=== PATIENT | male | born 1980 | race Caucasian/White ===

== ENCOUNTER 2018-11-16 14:20 | Outpatient (REF) | payer OTHER, SELFPAY ==
[2018-11-16 22:03] LABS: Abs Immature Grans 0.01 k/cumm (0.0-0.09); Absolute Basophil Count 0.02 k/cumm (0.0-0.2); Absolute Eosinophil Count 0.04 k/cumm (0.0-0.7); Absolute Lymphocyte Count 1.87 k/cumm (1.2-3.4); Absolute Monocyte Count 0.39 k/cumm (0.11-0.7); Absolute Neutrophil Count 4.84 k/cumm (1.2-6.7); Basophils % 0.3; Eosinophils % 0.6; HGB 14.8 g/dL (13.5-17.5); Immature Grans % 0.1; Lymphocytes % 26.1; Mean Corp. HGB Concentration 34.4 g/dL (32.0-36.0); Mean Corpuscular Volume 87.2 fL (80-95); Mean Platelet Volume 11.9 fL (8.0-11.0); Monocytes % 5.4; Neutrophils % 67.5; Platelet Count 215 x1000/uL (130-400); RBC 4.93 m/cumm (4.50-6.00); RBC Distribution Width 12.2 % (11.8-14.1); White Blood Cell Count 7.17 k/cumm (4.4-10.8)
[2018-11-16 22:18] LABS: Anion Gap 11.1 mmol/L (3-11); BUN 7 mg/dL (7-18); CO2 26.9 mmol/L (21.0-32.0); CREATININE 0.81 mg/dL (0.70-1.30); Calcium 9.2 mg/dL (8.5-10.1); Calculated LDL 120 mg/dL; Chloride 104 mmol/L (98-107); Cholesterol 193 mg/dL (50-200); Glucose 85 mg/dL (70-100); HDL Cholesterol 45 mg/dL (40-60); Potassium 3.8 mmol/L (3.5-5.1); Sodium 142 mmol/L (136-145); Triglyceride 143 mg/dL (30-150)
[2018-11-18 10:33] LABS: HIV-1/2 Ag & Ab Screen Negative (NEGAT); Hep A Total Ab w Rflx IgM Positive (NEGAT); Hepatitis C Ab w Rflx HCV PCR Negative (NEGAT)
[2018-11-18 11:00] LABS: HBs Antibody, Quant <3.1 mIU/mL; Hepatitis B Surface Ab Negative
[2018-11-18 11:11] LABS: Hepatitis B Surface Ag Negative (NEGAT)
[2018-11-18 11:18] LABS: Syphilis Serology (RPR) Negative (Negative)
[2018-11-24 13:20] LABS: Hep A Antibody IgM Negative (NEGAT)
== END 2018-11-16 14:40 ==
LOC: NCHCN 14:20
PROVIDERS: PCP Family Medicine; Visit Provider Family Medicine
DX: Z00.00 Encounter for general adult medical examination without abnormal findings (principal); L30.9 Dermatitis, unspecified; A63.0 Anogenital (venereal) warts; Z11.4 Encounter for screening for human immunodeficiency virus [HIV]; Z11.59 Encounter for screening for other viral diseases; Z01.84 Encounter for antibody response examination; Z82.49 Family history of ischemic heart disease and other diseases of the circulatory system
CPT/HCPCS: 80048; 80061; 83721; 86706; 86709; 86803; 87340; 87389; 87491; 87591; 84443; 85025; 86592

== ENCOUNTER 2018-11-17 12:52 | Outpatient (REF) | payer OTHER, SELFPAY ==
[2018-11-19 13:45] LABS: Chlamydia Result Negative; GC Result Negative; Specimen Description URINE
== END 2018-11-17 13:12 ==
LOC: NCHCN 12:52
PROVIDERS: PCP Family Medicine; Visit Provider Family Medicine
DX: Z00.00 Encounter for general adult medical examination without abnormal findings (principal); Z11.3 Encounter for screening for infections with a predominantly sexual mode of transmission; A63.0 Anogenital (venereal) warts
CPT/HCPCS: 87491; 87591

== ENCOUNTER 2019-04-05 11:43 | Emergency (ER) | payer OTHER, SELFPAY ==
[2019-04-05 11:46] VITALS: BP 124/74; PULSE 66; RESP 18; TEMP 36.8; O2SAT 98
--- NOTE | 2019-04-05 12:10 | W.ED.GENAD ---
Discharge Plan Disposition Patient Disposition: HOME Condition: Good Discharge Details Chief Complaint: Orthopedic Clinical Impression: Bursitis Primary Care Provider: None,None ED Provider: Karena Proctor Home Meds and New Rx's Prescriptions: No Action No Known Home Meds RF: 0 Discharge Instructions Instructions: Knee Bursitis (ED) Additional Instructions: Rest. Activities as tolerated. Elevate injury to prevent swelling. Avoid kneeling on affected knee. Ice to the area of discomfort for 15 min. 3-5 times daily. Motrin every 8 hours with food or Tylenol every 6 hours for soreness if needed over the counter for comfort. Bruce wrap for comfort. Do not need to sleep in bruce at night Followup with orthopedic doctor as discussed if not improving in one week. Return for any worsening or concerns sooner if needed. Referrals: Ortega Dobbins MD [ [facility] STAFF PHYSICIAN] - Discharge Data Discharge Date/Time-TO BE ENTERED AT DEPARTURE: 04/05/19 14:30 Medical Decision Making Is a 38-year-old gentleman who presents to the emergency room after injuring his bilateral knees when someone jumped on his back at his [employer]. Patient ultimately fell forward striking bilateral knees on cement wall climbing up hill. Patient presents with abrasions to bilateral knees. Patient has no complaints of right knee pain but is complaining of left knee pain. Patient reports left knee pain which she describes as a discomfort after sitting for any period of time when attempting to stand or get out of a car he notes increase in left knee pain. Patient appreciates a mild swelling of the left knee and mild warmth. Abrasions are present. Denies distal numbness, tingling or weakness. Patient does have extension which is intact however has some limitation to full flexion of the knee. Denies any locking, popping or giving out. Patient does report a history of knee injury as an adolescent with sports, no surgical history. Patient's x-ray reveals NDICATION: pain, injury fell on left knee. COMPARISON: No exams were available for comparison TECHNIQUE: 2D digital imaging was performed. FINDINGS: There is mild anterior soft tissue swelling. There is calcification at the medial femoral condyle which could represent a small exostosis versus calcification at the origin of the medial collateral ligament. The joint spaces are well maintained. There is no evidence of fracture or joint effusion. IMPRESSION: No acute abnormality. X-ray does not reveal an acute fracture. Discussed with patient the possibility of a ligamentous injury which is not identified on x-ray. Rice encouraged. Offered bracing versus Bruce wrap, preference is Bruce wrap. Patient does not feel crutches are necessary at this time. Orthopedic referral was provided for any persistence of pain lasting greater than 1 week. Patient reports his understanding with plan of care. HPI General Date/Time Provider Initiated Documentation: 04/05/19 11:52. HPI Narrative: Is a 38-year-old patient who presents for left knee complaints. 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 Patient reports abrasions to bilateral knees but specifically has complaints of left knee pain. Patient denies significant right knee pain. Patient reports stiffness in the knee as well as pain when initially ambulating. Patient does indicate an area on the left patella as maximum site of discomfort. Patient does have a history of previous knee injuries due to sports none requiring surgery. Patient is able to bear weight. Increased pain with deep knee bending, some limitation to flexion. Denies numbness, tingling or weakness. No other concerns or complaints at this time. Denies any other sites of pain or concerns. Tetanus is unknown, he will review his vaccination records. Related Data Home Medications Medication Instructions Recorded Confirmed Unknown [No Known Home Meds] 04/05/19 04/05/19 Allergies Allergy/AdvReac Type Severity Reaction Status Date / Time No Known Allergies Allergy Unverified 04/05/19 11:50 General Stated Complaint: Orthopedic BRET: 4 Review of Systems All systems reviewed & are unremarkable except as noted in HPI and below Constitutional Constitutional: Denies headache(s) ENT Ears, Nose, Mouth, and Throat: Denies headache(s) and Denies neck pain Musculoskeletal Musculoskeletal: Denies back pain, Reports joint swelling, Reports limited range of motion, Denies neck pain, Denies numbness and Denies tingling Neurologic Neurologic: Denies headache(s), Denies numbness and Denies tingling [facility] Social History Smoking/Tobacco Use Status: Never Alcohol Intake: current Alcohol Intake frequency: 0-2 drinks per day Drug use: Never Substance use type: does not use Do you feel safe at home: Yes Do you feel safe in your relationship?: Yes Exam Narrative Exam Narrative: CONST: Healthy appearing patient, in no acute distress. Well hydrated. Alert and alert. MUSCULOSKELETAL: Normal Gait. Left knee; mild knee effusion present. Left anterior knee bursa swelling, minimal discomfort. Patella tenderness. Patella tracking in the midline no pain with shifting of the patella. Straight leg raise intact. Mild limitation to knee flexion. No significant joint line tenderness with palpation. No obvious pain with valgus or varus stress of the meniscus. No obvious laxity compared to contralateral knee. Distal neurovascularly intact SKIN: Normal. Dry. No rashes. Neuro: Speech clear. Course Vital Signs Vital signs: Vital Signs Temperature 36.8 C 04/05/19 11:46 Pulse 66 04/05/19 11:46 Respiratory Rate 18 04/05/19 11:46 Blood Pressure 124/74 04/05/19 11:46 Pulse Oximetry 98 04/05/19 11:46 Temperature 36.8 C 04/05/19 11:46 Temperature Source Skin 04/05/19 11:46 Pulse 66 04/05/19 11:46 Respiratory Rate 18 04/05/19 11:46 Respiratory Effort Non-Labored 04/05/19 11:51 Blood Pressure 124/74 04/05/19 11:46 Blood Pressure Position Sitting 04/05/19 11:46 Pulse Oximetry 98 04/05/19 11:46 Oxygen Delivery Method Room Air 04/05/19 11:46 Oxygen Flow Rate 0 04/05/19 11:46 Pain Level 8 04/05/19 11:46
--- NOTE | 2019-04-05 12:25 | DI.RAD_ITS ---
EXAM: XR KNEE LT 4V AP,LAT,LEYDI,PAT INDICATION: pain, injury fell on left knee. COMPARISON: No exams were available for comparison TECHNIQUE: 2D digital imaging was performed. FINDINGS: There is mild anterior soft tissue swelling. There is calcification at the medial femoral condyle wh ich could represent a small exostosis versus calcification at the origin of the medial collateral lig ament. The joint spaces are well maintained. There is no evidence of fracture or joint effusion. IMPRESSION: No acute abnormality.
== END 2019-04-05 14:30 | disposition home or self-care (01) ==
PROVIDERS: Emergency Provider Physician Assistant
DX: M71.562 Other bursitis, not elsewhere classified, left knee (principal); W01.198A Fall on same level from slipping, tripping and stumbling with subsequent striking against other object, initial encounter
CPT/HCPCS: 99283; 73564

== ENCOUNTER 2021-01-29 09:47 | Outpatient (REF) | payer OTHER, SELFPAY ==
[2021-01-30 10:17] LABS: Syphilis Serology (RPR) Negative (Negative)
[2021-01-30 11:17] LABS: HIV-1/2 Ag & Ab Screen Negative (Negative)
[2021-01-30 13:47] LABS: Chlamydia Result Negative (Negative); GC Result Negative (Negative)
== END 2021-01-29 09:48 | disposition home or self-care (01) ==
LOC: NCHCN 09:47
PROVIDERS: Visit Provider Internal Medicine
DX: Z11.3 Encounter for screening for infections with a predominantly sexual mode of transmission (principal); Z11.4 Encounter for screening for human immunodeficiency virus [HIV]
CPT/HCPCS: 87389; 87491; 87591; 86592

== ENCOUNTER 2021-05-13 12:22 | Emergency (ER) | payer OTHER, SELFPAY ==
[2021-05-13 12:27] VITALS: BP 120/64; PULSE 62; RESP 16; TEMP 37.1; O2SAT 99
--- NOTE | 2021-05-13 12:30 | DI.RAD_ITS ---
Exam(s) XR THUMB LT EXAM: XR THUMB LT EXAM DATE/TIME: CLINICAL HISTORY: pain after fall skiing. TECHNIQUE: 2D digital imaging was performed of the left finger. Three views were obtained. PA/AP, oblique, and lateral views were obtained. COMPARISON: None. FINDINGS: BONES: No acute fracture is present. No bony destructive lesion is seen. JOINTS: No dislocation is present. SOFT TISSUE: Normal. IMPRESSION: No evidence of acute fracture or dislocation. DATA REPOSITORY: RADIATION DOSE DELIVERED:
--- NOTE | 2021-05-13 12:41 | ED.GENADUL_ITS ---
Discharge Plan Disposition Patient Disposition: HOME Condition: Improving Discharge Details Clinical Impression: Left thumb sprain Primary Care Provider: None,None ED Provider: Ortega Mercedes Home Meds and New Rx's Prescriptions: No Action No Known Home Meds RF: 0 Discharge Instructions Additional Instructions: We have referred you to orthopedics for follow-up and repeat examination. The office number is [phone], but you should receive a call regarding an appointment time. Wear splint until seen in orthopedics for follow-up. You may remove for bathing. Tylenol and/or ibuprofen for pain. Apply ice to area to reduce. Return to the emergency department for any acute concerns. Medical Decision Making 40-year-old male states he was cross-country skiing yesterday with his hands strapped into poles, with distended a slope and then fell backwards after hitting soft snow. He injured his left thumb which is developed bruising and swelling overnight. He denies other injury. Patient has fusiform tenderness and swelling at the base and proximal phalanx of the left thumb. Laxity is not appreciated on the exam at the bedside. He is referred for x-ray which does not reveal underlying fracture or dislocation. He may have partial ulnar collateral ligament tear and I will place him in thumb spica splint with follow-up in orthopedics. Patient stable and appropriate for outpatient. HPI General Mode of arrival: ambulatory . Date/Time Provider Initiated Documentation: 05/13/21 12:23 . Limitations to Documentation: no limitations . Information obtained by: patient . History of Present Illness 40 year old M presents to the emergency department with the chief complaint of Left thumb inju ry yesterday, described as moderate, Quality is described as dull, and is localized to the left and upper extremity. Patient reports no radiation. Patient started experiencing this hour(s) and it has been constant. Rest improves symptom(s), Movement worsens symptoms . Patient notes denies denies other symptoms. Patient did receive the following treatments prior to arrival, none Related Data Home Medications Medication Instructions Recorded Confirmed Unknown [No Known Home Meds] 04/05/19 05/13/21 Allergies Allergy/AdvReac Type Severity Reaction Status Date / Time No Known Allergies Allergy Unverified 05/13/21 12:31 General Stated Complaint: Orthopedic BRET: 4 Review of Systems Narrative: Denies other injury. No numbness or tingling. 6 systems were reviewed and otherwise negative PFS All Active Problems (Updated 05/13/21 @ 13:01 by Ortega Mercedes MD) Left thumb sprain (Acute) Social History Smoking/Tobacco Use Status: Never Smoking risk assessment performed?: Yes Alcohol Intake: current Alcohol Intake frequency: 0-2 drinks per day Drug use: Never Substance use type: does not use Do you feel safe at home: Yes Do you feel safe in your relationship?: Yes Exam Narrative Exam Narrative: GEN: awake, alert, oriented 3. Pleasant, well groomed, interactive. HEAD: Normocephalic, atraumatic NECK: Full ROM CHEST/RESP: No respiratory distress EXT: Full ROM, the left thumb is tender at the base and through the proximal phalanx. No laxity is appreciated. Sensation intact throughout. Neuro: Grossly normal neurologic exam, conversant, interactive. Psych: Speech fluent, thoughts congruent, affect normal Course Vital Signs Vital signs: Vital Signs Temperature 37.1 C 05/13/21 12:27 Pulse 62 05/13/21 12:27 Respiratory Rate 16 05/13/21 12:27 Blood Pressure 120/64 05/13/21 12:27 Pulse Oximetry 99 05/13/21 12:27 Temperature 37.1 C 05/13/21 12:27 Temperature Source Skin 05/13/21 12:27 Pulse 62 05/13/21 12:27 Respiratory Rate 16 05/13/21 12:27 Respiratory Effort 05/13/21 12:27 Blood Pressure 120/64 05/13/21 12:27 Blood Pressure Position Sitting 05/13/21 12:27 Pulse Oximetry 99 05/13/21 12:27 Oxygen Delivery Method Room Air 05/13/21 12:27 Oxygen Flow Rate 0 05/13/21 12:27 Pain Level 3 05/13/21 12:32 PAWSS Have you Been Recently Intoxicated or Drunk Within the Last 30 days?: Yes Have you Ever Experienced Previous Episodes of Alcohol Withdrawal?: No Have you ever Experienced Withdrawal Seizures?: No Have you ever Experienced Delirium Tremens(DT)s?: No Have you ever undergone Alcohol Rehabilitation Treatment (i.e, inpt ot outpatient treatment programs)?: No Have you ever Experienced Blackouts?: No Have you ever Combined Alcohol with other Downers within the last 90 days?: No Have you ever Combined Alcohol with any other Substance of Abuse during the last 90 days?: No Result: 1
--- NOTE | 2021-05-13 13:08 | DI.VRAD_ITS ---
PROCEDURE INFORMATION: Exam: XR Left Finger(s) Exam date and time: 05/13/2021 12:42 PM Age: 40 years old Clinical indication: Injury or trauma; Other: Pain after fall skiing; Sprain or strain; Finger; Left; Thumb TECHNIQUE: Imaging protocol: XR Left fingers. Views: Minimum 2 views. COMPARISON: No relevant images were readily available for comparison purposes. FINDINGS: Bones/joints: No acute fracture or dislocation. Soft tissues: Unremarkable. IMPRESSION: No acute fracture or dislocation. Dictated and Authenticated by: Maximiliano Nagy MD. Ordering:JIHAN Vivas MD
== END 2021-05-13 13:31 | disposition home or self-care (01) ==
PROVIDERS: Emergency Provider Emergency Medicine
DX: S63.682A Other sprain of left thumb, initial encounter (principal); V00.321A Fall from snow-skis, initial encounter
CPT/HCPCS: 29125; 99283; 73140

== ENCOUNTER 2022-01-14 20:32 | Outpatient (REF) | payer OTHER, SELFPAY ==
[2022-01-14 21:40] LABS: ALT 29 U/L (16-63); AST 14 U/L (15-37); Alkaline Phosphatase 72 U/L (46-116); Anion Gap 7.2 mmol/L (3-11); BUN 14 mg/dL (7-18); Bilirubin, Total 0.3 mg/dL (0.2-1.0); CO2 28.8 mmol/L (21.0-32.0); CREATININE 0.9 mg/dL (0.70-1.30); Calcium 9.2 mg/dL (8.5-10.1); Calculated LDL 128 mg/dL (<100); Chloride 104 mmol/L (98-107); Cholesterol 221 mg/dL (<200); Estimated GFR 108.68 (mL/min/1.73m2); Glucose 83 mg/dL (74-106); HDL Cholesterol 46 mg/dL (40-60); Potassium 3.9 mmol/L (3.5-5.1); Sodium 140 mmol/L (136-145); Total Protein 7.4 g/dL (6.4-8.2); Triglyceride 238 mg/dL (<150)
== END 2022-01-14 20:33 | disposition home or self-care (01) ==
LOC: NCHCN 20:32
PROVIDERS: PCP Internal Medicine; Visit Provider Internal Medicine
DX: E78.5 Hyperlipidemia, unspecified (principal); Z00.00 Encounter for general adult medical examination without abnormal findings
CPT/HCPCS: 80053; 80061

== ENCOUNTER 2023-01-22 22:15 | Outpatient (REF) | payer OTHER, SELFPAY ==
[2023-01-22 23:04] LABS: ALT 45 U/L (16-63); AST 20 U/L (15-37); Albumin 4.1 g/dL (3.4-5.0); Alkaline Phosphatase 66 U/L (46-116); Anion Gap 8.3 mmol/L (3-11); BUN 13 mg/dL (7-18); Bilirubin, Total 0.4 mg/dL (0.2-1.0); CO2 26.7 mmol/L (21.0-32.0); Calcium 9.6 mg/dL (8.5-10.1); Calculated LDL 133 mg/dL (<100); Chloride 103 mmol/L (98-107); Cholesterol 209 mg/dL (<200); Estimated GFR 95.18 (mL/min/1.73m2); Glucose 92 mg/dL (74-106); HDL Cholesterol 48 mg/dL (40-60); Sodium 138 mmol/L (136-145); Total Protein 7.7 g/dL (6.4-8.2); Triglyceride 142 mg/dL (<150)
== END 2023-01-22 22:16 | disposition home or self-care (01) ==
LOC: NCHCN 22:15
PROVIDERS: PCP Internal Medicine; Visit Provider Internal Medicine
DX: Z00.00 Encounter for general adult medical examination without abnormal findings (principal); E78.5 Hyperlipidemia, unspecified; Z51.81 Encounter for therapeutic drug level monitoring; Z82.49 Family history of ischemic heart disease and other diseases of the circulatory system
CPT/HCPCS: 80053; 80061

== ENCOUNTER 2024-04-05 09:19 | Outpatient (REF) | payer OTHER, SELFPAY ==
--- OUTSIDE RECORDS SUMMARY | 2024-04-05 09:35 | XMS_ITS | Referral Summary ---
Author Organization [facility] Address [address] [place] [address] Care Team Providers Care Mounted Police Officer Name Role Phone Unknown, Provider MD Primary Care Provider Unava ilable Allergies No known active allergies Medications No known medications Active Problems No known active problems Social History Tobacco Use Types Packs/Day Years Used Date Smoking Tobacco: Never Assessed Interpersonal Safety Answer Date Record ed Physically Hurt Never 03/21/2020 Verbally Threaten Not on file 03/21/2020 Sex and Gender Information Value Date Recorded Sex Assigned at Not on file Legal Sex Male 18:07 EST Gender Identity Not on file Sexual Orientation Not on file Last Filed Vital Signs Vital Sign Reading Time Taken Comments Blood Pressure 108/74 10/29/2021 1118 EDT Pulse 58 10/29/2021 1118 EDT Temperature 37.1 ??C (98.7 ??F) 10/29/2021 1118 EDT Respiratory Rate 16 10/29/2021 1118 EDT Oxygen Saturation 100% 10/29/2021 1118 EDT Inhaled Oxygen Concentration - - Weight - - Height - - Body Mass Index - - Plan of Treatment Not on file Insurance [facility] Care Teams Mounted Police Officer Relationship Specialty Start Date End Date Unknown, Provider, PCP - General 11/01/14
--- OUTSIDE RECORDS SUMMARY | 2024-04-05 09:35 | XMS_ITS | Encounter Summary ---
Author Organization [facility] Address [address] [place] [address] Care Team Providers Care Distribution Operations Manager Name Role Phone Unknown, Provider Primary Care Provider Unava ilable Reason for Visit * Reason Onset Date Comments Other 03/21/2020 Encounter Details Date Type Department Care Team (Late st Contact Info) Description 03/21/2020 Telephone [facility] - [facility] Orthopedics & Sport Medicine [address], [address] [place], [place] [id number] Madeline Shepherd, RN [address] [facility] [address] [place], [place] [address] Other Social History Tobacco Use Types Packs/Day Years Used Date Smoking Tobacco: Never Assessed Interpersonal Safety Answer Date Record ed Physically Hurt Never 03/21/2020 Verbally Threaten Not on file 03/21/2020 Sex and Gender Information Value Date Recorded Sex Assigned at Not on file Legal Sex Male 18:07 EST Gender Identity Not on file Sexual Orientation Not on file documented as of this encounter Miscellaneous Notes * Telephone Encounter - Madeline Shepherd RN - 03/21/2020 1522 EST Braulio called back. His concern was that he was not seeing a physician and his encounter with a PA at [facility] was not as successful as he would have liked. Reassured him that was very knowledgeable in upper extremity orthopedics. He will have the MRI sent to us for the appt. * Telephone Encounter - Madeline Shepherd RN - 03/21/2020 1323 EST Mr. Johnson called and left a message requesting a call back as he has specific questions regarding his appt on Friday (new patient appt 03/27/2020). Attempted to call the patient back. No answer and voice mail message left. documented in this encounter Plan of Treatment Not on file documented as of this encounter Visit Diagnoses Not on filedocumented in this encounter Care Teams Distribution Operations Manager Relationship Specialty Start Date End Date Unknown, Provider, PCP - General 11/01/14 documented as of this encounter
--- OUTSIDE RECORDS SUMMARY | 2024-04-05 09:35 | XMS_ITS | Encounter Summary ---
Author Organization Health system Address [address] [place] [address] Care Team Providers Care Diesel Fitter Mechanic Name Role Phone Unknown, Provider Primary Care Provider Unava ilable Reason for Visit * Reason Comments Cough Encounter Details Date Type Department Care Team (Late st Contact Info) Description 10/29/2021 11:00 EDT Office Visit [facility] [address], [place] [id number] Brenda Hinkle PA-C [address] [facility] [address] [place], [place] [id number] Cough (Primary Dx) Social History Tobacco Use Types Packs/Day Years Used Date Smoking Tobacco: Never Assessed Interpersonal Safety Answer Date Record ed Physically Hurt Never 03/21/2020 Verbally Threaten Not on file 03/21/2020 Sex and Gender Information Value Date Recorded Sex Assigned at Not on file Legal Sex Male 18:07 EST Gender Identity Not on file Sexual Orientation Not on file documented as of this encounter Last Filed Vital Signs Vital Sign Reading Time Taken Comments Blood Pressure 108/74 10/29/2021 1118 EDT Pulse 58 10/29/2021 1118 EDT Temperature 37.1 ??C (98.7 ??F) 10/29/2021 1118 EDT Respiratory Rate 16 10/29/2021 1118 EDT Oxygen Saturation 100% 10/29/2021 1118 EDT Inhaled Oxygen Concentration - - Weight - - Height - - Body Mass Index - - documented in this encounter Patient Instructions * Patient Instructions* Brenda Hinkle PA-C - 10/29/2021 11:00 EDT Images from the original note were not included. [facility] Patient Instructions Upper Respiratory Infection (Cold): Care Instructions Your Care Instructions An upper respiratory infection, or URI, is an infection of the nose, sinuses, or throat. URIs are spread by coughs, sneezes, and direct contact. The common cold is the most frequent kind of URI. The flu and sinus infections are other kinds of URIs. Almost all URIs are caused by viruses. Antibiotics won't cure them. But you can treat most infections with home care. This may include drinking lots of fluids and taking kjmk-rof-xazdqfn pain medicine. You will probably feel better in 4 to 10 days. The doctor has checked you carefully, but problems can develop later. If you notice any problems ornew symptoms, get medical treatment right away. Follow-up care is a bains part of your treatment and safety. Be sure to make and go to all appointments, and call your doctor if you are having problems. It's also a good idea to know your test resultsand keep a list of the medicines you take. How can you care for yourself at home? ?? To prevent dehydration, drink plenty of fluids. Choose water and other clear liquids until you feel better. If you have kidney, heart, or liver disease and have to limit fluids, talk with your doctor before you increase the amount of fluids you drink. ?? Take an piwl-pfu-alycufr pain medicine, such as acetaminophen (Tylenol), ibuprofen (Advil, Motrin), or naproxen (Aleve). Read and follow all instructions on the label. ?? Before you use cough and cold medicines, check the label. These medicines may not be safe for young children or for people with certain health problems. ?? Be careful when taking hnam-lvi-jqtabgr cold or flu medicines and Tylenol at the same time. Manyof these medicines have acetaminophen, which is Tylenol. Read the labels to make sure that you are not taking more than the recommended dose. Too much acetaminophen (Tylenol) can be harmful. ?? Get plenty of rest. ?? Do not smoke or allow others to smoke around you. If you need help quitting, talk to your doctorabout stop-smoking programs and medicines. These can increase your chances of quitting for good. When should you call for help? Call 911 anytime you think you may need emergency care. For example, call if: ? You have severe trouble breathing. Call your doctor now or seek immediate medical care if: ? You seem to be getting much sicker. ? You have new or worse trouble breathing. ? You have a new or higher fever. ? You have a new rash. Watch closely for changes in your health, and be sure to contact your doctor if: ? You have a new symptom, such as a sore throat, an earache, or sinus pain. ? You cough more deeply or more often, especially if you notice more mucus or a change in the color of your mucus. ? You do not get better as expected. Where can you learn more? Go to https://[email or web address].Vontoo.[facility]/Vivaty or log into your Magin account at https://PriceTag.[employer]org Enter K520 in the search box to learn more about Upper Respiratory Infection (Cold): Care Instructions. Current as of: October 24, 2020?Content Version: 13.2 ?? [employer]. Care instructions adapted under license by [facility]. If you have questions about a medical condition or this instruction, always ask your healthcare professional. [employer] disclaims any warranty or liability for your use of this information. documented in this encounter Progress Notes * Doris Shannon MA - 10/29/2021 1100 EDT CC/HPI: Patient reports a hoarse voice started 1 week ago. Patient developed a productive cough that is much worse at night when laying down at night and upon first waking up in the morning started about 3 days ago. Patient has taken 4 rapid COVID test which have all been negative. No fever or shortness of breath. Recent exposure to Pneumonia. Covid Screening: In the last 72 hours, has the patient had: New or unusual cough, shortness of breath, new nasal congestion, sore throat, fever, chills, body aches, or new loss of taste or smell without a reasonable alternative diagnosis*? (If yes, assign to ARC)- See above In the past 10 days, has the patient had a positive Covid test OR a confirmed close Covid exposure (<6ft for > 15mins in 24hr period)? (if yes, assign to ARC, regardless of vaccination status)-No *may be determined by RN or in discussion with available provider (BRAIDING OPERATOR's and CCA's can defer to Charge Nurse to complete triage when appropriate) PCP: UNKNOWN,PROVIDER * Brenda Hinkle PA-C - 10/29/2021 1100 EDT [facility] Express Care Chief Complaint(s): Chief Complaint Patient presents with ??? Cough Assessment & Plan: 1. Cough New Prescriptions No medications on file This patient presents with concern for upper respiratory infection type symptoms. The patient has areassuring physical exam without a focal point of infection. Vital signs stable and the patient appears well. The patient has symptoms consistent with viral illness vs allergies. Antibiotics not indicated at this time. Advised rest, hydration, and time. Use nasal saline, humidifier in bedroom, hot steam baths, and OTC medications as discussed. Symptoms will last 7-10 days andmay have lingering cough/nasal congestion for 1-2 weeks. F.u with any concern for worsening symptoms, fevers, SOB. HPI: The history is provided by the patient. Cough This is a new problem. Episode onset: in the past 5-7 days. The problem has been waxing and waning.The problem occurs every few minutes. Cough characteristics: productive of yellow sputum only in the morning. Associated symptoms include nasal congestion and a sore throat (loss of voice although this is improving). Pertinent negatives include no fever, shortness of breath or wheezing. The symptoms are aggravated by lying down. There is no history of asthma or pneumonia. No smoking history. Notes coworker has asthma and similar symptoms. The coworker is being treated with doxycycline, pt thinks for pneumonia, so pt is worried about pneumonia exposure ROS: Review of Systems Constitutional: Negative for fever. HENT: Positive for sore throat (loss of voice although this is improving). Respiratory: Positive for cough. Negative for shortness of breath and wheezing. Objective: Vitals and nursing notes reviewed Examination: BP 108/74 (BP Cuff Location: Left arm, BP Patient Position: Sitting, BP Cuff Sizes: Adult, long) Pulse 58 Temp 37.1 ??C (98.7 ??F) (Oral) Resp 16 SpO2 100% Physical Exam Constitutional: Appearance: He is well-developed. HENT: Right Ear: Tympanic membrane normal. Left Ear: Tympanic membrane normal. Mouth/Throat: Pharynx: No oropharyngeal exudate or posterior oropharyngeal erythema. Eyes: Conjunctiva/sclera: Conjunctivae normal. Cardiovascular: Rate and Rhythm: Normal rate and regular rhythm. Pulmonary: Effort: Pulmonary effort is normal. Breath sounds: No wheezing, rhonchi or rales. Musculoskeletal: Cervical back: Normal range of motion. No tenderness. Lymphadenopathy: Cervical: No cervical adenopathy. Skin: General: Skin is warm and dry. Neurological: Mental Status: He is alert. Gait: Gait normal. This note may be in part documented using voice dictation software. Please forgive any errors or omissions that may result from use of dictation. documented in this encounter Plan of Treatment Not on file documented as of this encounter Visit Diagnoses Diagnosis Cough- Primary documented in this encounter Care Teams Diesel Fitter Mechanic Relationship Specialty Start Date End Date Unknown, Provider, PCP - General 11/01/14 documented as of this encounter
--- OUTSIDE RECORDS SUMMARY | 2024-04-05 09:35 | XMS_ITS | Encounter Summary ---
Author Organization [facility] Address [address] [place] [address] Care Team Providers Care Portable Track Crew Chief Name Role Phone Unknown, Provider Primary Care Provider Unava ilable Reason for Visit * Reason Comments Pain Encounter Details Date Type Department Care Team (Late st Contact Info) Description 03/27/2020 11:00 EST Office Visit [facility] Orthopedics & Sport Medicine [address] [place], [place] [phone] Linda Chung PA-C [address] [facility] [address] [place] [id number] Adhesive capsulitis of left shoulder (Primary Dx) Social History Tobacco Use Types Packs/Day Years Used Date Smoking Tobacco: Never Assessed Interpersonal Safety Answer Date Record ed Physically Hurt Never 03/21/2020 Verbally Threaten Not on file 03/21/2020 Sex and Gender Information Value Date Recorded Sex Assigned at Not on file Legal Sex Male 18:07 EST Gender Identity Not on file Sexual Orientation Not on file COVID-19 Exposure Response Date Recorded In the last month, have you been in contact with someone who was confirmed or suspected to have Coronavirus / COVID-19? No / Unsure 03/27/2020 11:06 EST documented as of this encounter Last Filed Vital Signs Vital Sign Reading Time Taken Comments Blood Pressure - - Pulse - - Temperature 36.8 ??C (98.3 ??F) 03/27/2020 1111 EST Respiratory Rate - - Oxygen Saturation - - Inhaled Oxygen Concentration - - Weight - - Height - - Body Mass Index - - documented in this encounter Progress Notes * Linda Chung PA-C - 03/27/2020 1100 EST Patient presents today for evaluation of his left shoulder. He states that he feels this has been ongoing for 1 year since his [employer] libertarian last year. 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 He has had some PT but then was out of the country [place] a while. He has pain that is sharp and radiates up the entire arm. CHIEF COMPLAINT: SUBJECTIVE: Braulio Johnson is a 39 y.o. right hand dominant male who presents today for evaluation of his left shoulder. He is here for a second opinion. He fell directly onto the left shoulder, at a [employer] libertarian last year. Initially, did not have a significant amount of pain, but then developed some soreness in the shoulder, slowly the soreness increased, and the range of motion decreased. He initially did some physical therapy early on, but then traveled to [facility] for a few months, came back in June and PT was shut down due to the Covid restrictions. He then restarted PT recently. Saw [facility] in November, radiographs taken at that time. He then proceeded with an MRI in January.He saw Dr. Plummer, at [facility]. Right now he states that he has pain whenever he moves the shoulder, has difficulty with rotation, and significant stiffness lifting overhead. 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 He has not tried any oral medications, does do CBD capsule as well as melatonin to sleep at night as he has considerable pain atnight. Denies paresthesias, denies prior shoulder injuries, denies neck pain. A 10-point review of systems has been reviewed from the new patient intake sheet and all are negative except noted in HPI. He is a non-smoker. The past medical, family and social history have been reviewed in the patient chart. I spent time preparing advance of the visit today, which included obtaining and reviewing prior history and notes from the primary care provider and/or referring providers, as well as reviewing any relevant prior imaging and tests, which I also independently interpreted. History reviewed. No pertinent past medical history. Social History Tobacco Use ??? Smoking status: Not on file Substance Use Topics ??? Alcohol use: Not on file History reviewed. No pertinent surgical history. No Known Allergies No current outpatient medications on file prior to visit. No current facility-administered medications on file prior to visit. OBJECTIVE: Temp 36.8 ??C (98.3 ??F) On physical exam, the patient is found to be a pleasant and cooperative male who appears to be alert and oriented x 3. He is well-developed, well-nourished and in no significant distress. Breathing is unlabored. Skin is warm, pink and dry to inspection and palpation. Neurovascularly intact with good capillary refill. Sensation to light touch in the distribution of median, radial and ulnar nerves is normal bilaterally. Upon inspection, there are no obvious areas of swelling, ecchymosis, joint deformity or atrophy. Range of motion of the shoulder is significantly limited today on the left. He essentially has 0 degrees of external rotation at the side, abduction actively 100 degrees, forward flexion 120 degrees. Internal rotation to the back pocket only. Significant pain testing range of motion. Passive range of motion unfortunately is not greater than active. He does have full strength ofthe rotator cuff today, significant pain testing the supraspinatus and subscapularis. Full strengthbiceps, triceps, deltoids without significant pain. Cervical motion is full. Prior radiographs and MRI independently reviewed. The MRI does reveal no significant rotator cuff tear with some tendinopathy/inflammation in the supraspinatus and infraspinatus. There is mild bursitis. There does appear to be possibly some thickening of the anterior glenohumeral joint capsule. ASSESSMENT: Frozen shoulder PLAN: After reviewing the prior separately obtained patient history, imaging and tests, and performing my examination and evaluation, I counseled educate the patient today about adhesive capsulitis. Discussed this at length with the patient as well as treatment options, including doing nothing as it is self- limiting, continue PT, oral anti-inflammatories and medications, as well as glenohumeral injection, and his surgical option. At this time would would not recommend a surgical option, but would recommend a glenohumeral injection. He agreed with this plan. Follow-up in 3 months for repeat evaluation. He states that he may be traveling to [facility] if he can, but he will follow-up with me via telephone if needed in interim. All questions were answered and he is pleased with the plan. Glenohumeral injection given today by Dr. Carvajal. Dr. Carvajal was the attending physician available in the clinic today if needed. A consultation was required. This note was prepared using voice recognition software and the EMR. There may be inadvertent errors and omissions. LYNNETTE Cardenas 03/27/2020 * Linda Chung PA-C - 03/27/2020 1100 ESTAssociated Order(s): Large Joint Injection/Arthrocentesis: L glenohumeral Post-Procedure Diagnose(s): Adhesive capsulitis of left shoulder Procedure: Large Joint Injection/Arthrocentesis: L glenohumeral on 03/27/2020 13:01 Indications: pain Details: 22 G needle Medications: 80 mg methylPREDNISolone ACETATE 80 mg/mL; 4 mL lidocaine (PF) 10 mg/mL (1 %) Outcome: tolerated well, no immediate complications Procedure, treatment alternatives, risks and benefits explained, specific risks discussed. Consent was given by the patient. Immediately prior to procedure a time out was called to verify the correctpatient, procedure, equipment, human resources support specialist and site/side marked as required. Patient was prepped and draped in the usual sterile fashion. documented in this encounter Plan of Treatment Not on file documented as of this encounter Procedures Procedure Name Priority Date/Time Associated Diagnosis Comments LARGE JOINT INJECTION/ARTHROCEN TESIS Routine 03/27/2020 11:00 EST Adhesive capsulitis of left shoulder documented in this encounter Results * RI ARTHROCENTESIS ASPIR&/INJ MAJOR JT/BURSA W/O US (03/27/2020 11:00 EST) Narrative [facility] - 03/27/2020 11:00 EST Linda Chung PA-C ? 03/27/2020 13:03 Large Joint Injection/Arthrocentesis: L glenohumeral on 03/27/2020 13:01 Indications: pain Details: 22 G needle Medications: 80 mg methylPREDNISolone ACETATE 80 mg/mL; 4 mL lidocaine (PF) 10 mg/mL (1 %) Outcome: tolerated well, no immediate complications Procedure, treatment alternatives, risks and benefits explained, specific risks discussed. Consent was given by the patient. Immediately prior to procedure a time out was called to verify the correct patient, procedure, equipment, human resources support specialist and site/side marked as required. Patient was prepped and draped in the usual sterile fashion. Shon Carvajal MD PROCEDURE/MINOR SURGICAL ORDERAB LES Final Result [facility] documented in this encounter Visit Diagnoses Diagnosis Adhesive capsulitis of left shoulder- Primary Adhesive capsulitis of shoulder documented in this encounter Administered Medications Inactive Administered Medications - up to 3 most recent administrations Medication Order MAR Action Action Date Dose Rate Site lidocaine (PF) 10 mg/mL (1 %) injection 4 mL 4 mL, other, Once PRN Procedure, 1 dose, Starting on Fri03/27/20 at 1301, Until Fri03/27/20 at 1301, RoutineIndications:Adhesive capsulitis of left shoulder Given 03/27/2020 13:01 EST 4 mL methylPREDNISolone ACETATE (DEPO-MEDROL) injection 80 mg 80 mg, intra-articular, Once PRN Procedure, 1 dose, Starting on Fri03/27/20 at 1301, Until Fri03/27/20 at 1301, RoutineIndications:Adhesive capsulitis of left shoulder Given 03/27/2020 13:01 EST 80 mg documented in this encounter Care Teams Portable Track Crew Chief Relationship Specialty Start Date End Date Unknown, Provider, PCP - General 11/01/14 documented as of this encounter
--- OUTSIDE RECORDS SUMMARY | 2024-04-05 09:35 | XMS_ITS | Encounter Summary ---
Author Organization [facility] Address [address] [place] [address] Care Team Providers Care Local Delivery Driver Name Role Phone Unknown, Provider Primary Care Provider Jevon chris Encounter Details Date Type Department Care Team (Late st Contact Info) Description 01/29/2021 Lab Requisition [facility] Pathology & Laboratory Medicine - [facility] [address] [place], [place] [address] Outr Resulting Lab, Provider Social History Tobacco Use Types Packs/Day Years Used Date Smoking Tobacco: Never Assessed Interpersonal Safety Answer Date Record ed Physically Hurt Never 03/21/2020 Verbally Threaten Not on file 03/21/2020 Sex and Gender Information Value Date Recorded Sex Assigned at Not on file Legal Sex Male 18:07 EST Gender Identity Not on file Sexual Orientation Not on file documented as of this encounter Plan of Treatment Not on file documented as of this encounter Procedures Procedure Name Priority Date/Time Associated Diagnosis Comments HIV 1/2 ANTIGEN AND ANTIBODY, 4TH GENERATION Routine 01/29/2021 9:05 EDT documented in this encounter Results * HIV 1/2 ANTIGEN AND ANTIBODY, 4TH GENERATION (01/29/2021 9:05 EDT) HIV 1 and 2 Antibody/p24 Antigen, 4th Generation Negative Negative 01/30/2021 11:12 EDT [facility] Comment: If acute HIV-1 infection is suspected in a high risk ??patient, submit plasma specimen for HIV-1 RNA quantitation test. Fourth Generation assay performed on the Siemens Eventbriteaur. Blood VENOUS BLOOD / Unknown 01/29/2021 9:05 EDT 01/29/2021 21:13 EDT us Provider Outr Resulting Lab IMMUNOLOGY AND SEROL OGY ORDERABLES Final Result [facility] [address] [place] [address] documented in this encounter Visit Diagnoses Not on filedocumented in this encounter Care Teams Local Delivery Driver Relationship Specialty Start Date End Date Unknown, Provider, PCP - General 11/01/14 documented as of this encounter
--- OUTSIDE RECORDS SUMMARY | 2024-04-05 09:35 | XMS_ITS | Encounter Summary ---
Author Organization [facility] Address [address] [place] [address] Care Team Providers Care Second Hand Paper Machine Name Role Phone Unknown, Provider Primary Care Provider Unava ilalonzo Encounter Details Date Type Department Care Team (Late st Contact Info) Description 12/17/2019 Results Only Imaging [facility] Radiology Results [address] [place] [address] Kimberly Townsend FNP [address], [address] [place] [address] Social History Tobacco Use Types Packs/Day Years Used Date Smoking Tobacco: Never Assessed Sex and Gender Information Value Date Recorded Sex Assigned at Not on file Legal Sex Male 18:07 EST Gender Identity Not on file Sexual Orientation Not on file documented as of this encounter Plan of Treatment Not on file documented as of this encounter Procedures Procedure Name Priority Date/Time Associated Diagnosis Comments XR SHOULDER LEFT 2 OR MORE VIEWS 12/17/2019 13:51 EDT documented in this encounter Results * XR SHOULDER LEFT 2 OR MORE VIEWS (12/17/2019 13:51 EDT) Anatomical Region Laterality Modality Left Computed Radiogr aphy 12/17/2019 13:4 8 EDT Narrative 12/17/2019 13:51 EDT ? EXAM: RADIOLOGY/SHOULDER LT 2+VIEWS ? EX. D/ (1344) ? CLINICAL INFORMATION: ? M25.512 LEFT SHOULDER/JOINT PAIN ? INDICATION: M25.512 LEFT SHOULDER/JOINT PAIN (L) SHOULDER JOINT PAIN ? TECHNIQUE: 3 views left shoulder. ? COMPARISON: None. ? FINDINGS: The glenohumeral joint alignment is anatomic. There is no ? acute fracture or acute osseous abnormality. The glenohumeral joint ? space is preserved. The acromioclavicular joint alignment is ? anatomic. ? IMPRESSION: ? Normal shoulder radiographs ? REPORT SIGNED IN OTHER VENDOR SYSTEM 12/17/2019 ?Reported By: Yohan Mejía MD ? CC: ? Transcribed Date/Time: 12/17/2019 (8489) ? Choir Teacher: ? Printed Date/Time: 12/17/2019 (6972) ? PAGE 1 ? Signed Report ? Procedure Note Yohan Mejía MD - 12/17/2019 EXAM: RADIOLOGY/SHOULDER LT 2+VIEWS EX. D/ (1344) CLINICAL INFORMATION: M25.512 LEFT SHOULDER/JOINT PAIN INDICATION: M25.512 LEFT SHOULDER/JOINT PAIN (L) SHOULDER JOINTPAIN TECHNIQUE: 3 views left shoulder. COMPARISON: None. FINDINGS: The glenohumeral joint alignment is anatomic. There is no acute fracture or acute osseous abnormality. The glenohumeral joint space is preserved. The acromioclavicular joint alignment is anatomic. IMPRESSION: Normal shoulder radiographs REPORT SIGNED IN OTHER VENDOR SYSTEM 12/17/2019 Reported By: Yohan Mejía MD CC: Transcribed Date/Time: 12/17/2019 (8854) Choir Teacher: Printed Date/Time: 12/17/2019 (1699) PAGE 1 Signed Report us Kimberly Townsend FIRE EXTINGUISHER TECHNICIAN IMG DIAGNOSTIC IMAGING ORDER SAI Final Result documented in this encounter Visit Diagnoses Not on filedocumented in this encounter Care Teams Second Hand Paper Machine Relationship Specialty Start Date End Date Unknown, Provider, PCP - General 11/01/14 documented as of this encounter
--- OUTSIDE RECORDS SUMMARY | 2024-04-05 09:35 | XMS_ITS | Encounter Summary ---
Author Organization [facility] Address [address] [place] [address] Care Team Providers Care Tool And Die Technician Name Role Phone Unknown, Provider Primary Care Provider Unafrank ilalonzo Encounter Details Date Type Department Care Team (Late st Contact Info) Description 01/29/2021 Lab Requisition [facility] Pathology & Laboratory Medicine - [facility] [address], [place] [id number] Outr Resulting Lab, Provider Social History Tobacco [...] Procedure Name Priority Date/Time Associated Diagnosis Comments SYPHILIS SEROLOGY Routine 01/29/2021 9:05 EDT documented in this encounter Results * SYPHILIS SEROLOGY (01/29/2021 9:05 EDT) Syphilis Serology Negative Negative 01/30/2021 10:12 EDT [facility] Blood VENOUS BLOOD / Unknown 01/29/2021 9:05 EDT 01/29/2021 21:13 EDT us Provider Outr Resulting Lab IMMUNOLOGY AND SEROL OGY ORDERABLES Final Result [facility] [address] [place] [address] documented in this encounter Visit Diagnoses Not on filedocumented in this encounter Care Teams Tool And Die Technician Relationship Specialty Start Date End Date Unknown, Provider, PCP - General 11/01/14 documented as of this encounter
--- OUTSIDE RECORDS SUMMARY | 2024-04-05 09:35 | XMS_ITS | Clinical Summary ---
Author Organization [facility] Address [address] [place] [address] Care Team Providers Care Bindery Machine Setter/Set Up Operator Name Role Phone Unknown, Provider Primary Care Provider Unava ilable Allergies No [...] on file Sexual Orientation Not on file Obstetrics History Last Filed Vital Signs Vital Sign Reading Time Taken Comments Blood Pressure 108/74 10/29/2021 1118 EDT Pulse 58 10/29/2021 1118 EDT Temperature 37.1 ??C (98.7 ??F) 10/29/2021 1118 EDT Respiratory Rate 16 10/29/2021 1118 EDT Oxygen Saturation 100% 10/29/2021 1118 EDT Inhaled Oxygen Concentration - - Weight - - Height - - Body Mass Index - - Plan of Treatment Health Maintenance Due Date Last Done Comments Hepatitis C Screen 1980 Hepatitis B Vaccine (1 of 3 - 19+ 3-dose series) 09/14 COVID-19 Vaccine ( season) 2023 Insurance [employer] Care Teams Bindery Machine Setter/Set Up Operator Relationship Specialty Start Date End Date Unknown, Provider, PCP - General 11/01/14
--- OUTSIDE RECORDS SUMMARY | 2024-04-05 09:35 | XMS_ITS | Encounter Summary ---
Author Organization [facility] Address [address] [place] [address] Care Team Providers Care Public Health Informatician Name Role Phone Unknown, Provider Primary Care Provider Unava ilable Encounter Details Date Type Department Care Team (Late st Contact Info) Description 01/29/2021 Lab Requisition [facility] Pathology & Laboratory Medicine - [facility] [address] [place], [place] [address] Outr Resulting Lab, Provider Social History Tobacco [...] Procedure Name Priority Date/Time Associated Diagnosis Comments CHLAMYDIA/N. GONORRHOEAE AMPLIFIED NUCLEIC ACID Routine 01/29/2021 9:05 EDT documented in this encounter Results * CHLAMYDIA/N. GONORRHOEAE AMPLIFIED RNA (01/29/2021 9:05 EDT) Neisseria gonorrhoeae Result Negative Negative 01/30/2021 13:43 EDT [facility] Chlamydia trachomatis Result Negative Negative 01/30/2021 13:43 EDT [facility] Urine URINE / Unknown 01/29/2021 9 :05 EDT 01/29/2021 21:46 EDT us Provider Outr Resulting Lab MICROBIOLOGY - GENER AL ORDERABLES Final Result [facility] [address] [place] [address] documented in this encounter Visit Diagnoses Not on filedocumented in this encounter Care Teams Public Health Informatician Relationship Specialty Start Date End Date Unknown, Provider, PCP - General 11/01/14 documented as of this encounter
--- OUTSIDE RECORDS SUMMARY | 2024-04-05 09:35 | XMS_ITS | Encounter Summary ---
Author Organization [facility] Address [address] [place] [address] Care Team Providers Care Gr[employer] 7 And 8 Visiting Teacher Name Role Phone Unavailable Primary Care Provider Cliare e Encounter Details Date Type Department Care Team ([facility] st Contact Info) Description 10/27/2014 Results Only [facility] [phone] Greta Brannon MD [address] [facility] [address] [place], [place] [id number] Social History Tobacco Use Types Packs/Day Years [...] Procedure Name Priority Date/Time Associated Diagnosis Comments SURGICAL PATHOLOGY Routine 10/27/2014 18 :09 EDT documented in this encounter Results * SURGICAL PATHOLOGY (10/27/2014 18:09 EDT) Pathology Report: SURGICAL PATHOLOGY REPORT Reports generated via electronic interface contain original data; however they are lacking the format of the original report. Caution should be taken when reading/interpret ing unformatted reports. Name: ? BRAULIO VILLA ? Accession #: ? [id number] ? : ? 1980 (Age: 34) ??M ? Collect Date: ? 10/27/2014 ? Location: ? [facility] ? Receive Date: ? 10/28/2014 ? Provider: GRETA BRANNON MD Copy to: ? Final Pathologic Diagnosis: SKIN OF ABDOMEN, SHAVE BIOPSY: - Seborrheic keratosis, pigmented. ?? Microscopic Description: The stratum corneum is thickened by compact and basketweave orthokeratosis with formation of horn pseudocysts. ??The epidermis is acanthotic with formation of broad and anastomosing trabeculae. ??The trabeculae are composed of basaloid keratinocytes with round uniform nuclei. ??The keratinocytes have a variable amount of melanin pigment. ??(Dr. James)/n Document reviewed and electronically signed by: STEVE JAMES MD Report ??Date: 10/31/2014 16:54 By the signature above, the attending physician certifies that he/she has personally conducted a gross and/or microscopic examination of the described specimens and rendered or confirmed the above diagnosis. Specimen(s) Received: Excision abdomen Clinical History: Pigmented skin tag Gross Description: ? Received in formalin labelled with proper patient identification (initials H, S) and abdomen is a shave biopsy of chong-brown, slightly villiform papule (0.7 x 0.5 x 0.2 cm). Trisected and submitted in 1. Dr. Patel 10/29/2014 8:16 AM End of Report [facility] 10/27/2014 18:0 9 EDT 10/28/2014 18:09 EDT us Greta Brannon MD PATHOLOGY ORDERABLES Final Resul t [facility] [address] [place] [address] documented in this encounter Visit Diagnoses Not on filedocumented in this encounter
--- OUTSIDE RECORDS SUMMARY | 2024-04-05 09:35 | XMS_ITS | Encounter Summary ---
Author Organization [facility] Address [address] [place] [address] Care Team Providers Care Digital Marketing Executive Name Role Phone Unknown, Provider MD Primary Care Provider Unava ilable Reason for Visit * Reason Onset Date Comments Update 04/05/2020 Encounter Details Date Type Department Care Team (Late st Contact Info) Description 04/05/2020 Telephone [facility] [address], [address] [place], [place] [id number] Linda Chung PA-C [address] [facility] [address] [place] [id number] Update Social History Tobacco Use Types Packs/Day Years [...] 11:06 EST documented as of this encounter Miscellaneous Notes * Telephone Encounter - Arnulfo Evans - 04/06/2020 9600 EST Called patient back to f/u. Patient endorses that the injection has given him enough relief that heis now able to sleep throughout the night and manage through the day. Patient was very pleased withinjection and will contact the office if he feels that he needs more done. * Telephone Encounter - Arnulfo Evans - 04/05/2020 1047 EST asked me to call the patient and ask how his shoulder has been after his 03/27 injection. No answer, LVM for call back. documented in this encounter Plan of Treatment Not on file documented as of this encounter Visit Diagnoses Not on filedocumented in this encounter Care Teams Digital Marketing Executive Relationship Specialty Start Date End Date Unknown, Provider, PCP - General 11/01/14 documented as of this encounter
--- OUTSIDE RECORDS SUMMARY | 2024-04-05 09:35 | XMS_ITS | Encounter Summary ---
Author Organization [facility] Address [address] [place] [address] Care Team Providers Care Leveling Machine Operator Name Role Phone Unknown, Provider Primary Care Provider Unava ilable Encounter Details Date Type Department Care Team (Latest Contact Info) Description 03/27/2020 Travel Social History Tobacco Use Types Packs/Day Years [...] 11:06 EST documented as of this encounter Plan of Treatment Not on file documented as of this encounter Visit Diagnoses Not on filedocumented in this encounter Care Teams Leveling Machine Operator Relationship Specialty Start Date End Date Unknown, Provider, PCP - General 11/01/14 documented as of this encounter
--- OUTSIDE RECORDS SUMMARY | 2024-04-05 09:35 | XMS_ITS | Encounter Summary ---
Author Organization [facility] Address [address] [place] [address] Care Team Providers Care Gummed Tape Press Operator Name Role Phone Unavailable Primary Care Provider Unavailabl e Encounter Details Date Type Department Care Team (Latest Contact Info) Description 10/27/2014 16:46 EDT - 10/27/2014 23:59 EDT Hospital Encounter [address] [address] Unknown, Provider, MD Discharge Disposition: Home or Self Care Social History Tobacco Use Types Packs/Day Years Used Date Smoking Tobacco: Never Assessed Sex and Gender Information Value Date Recorded Sex Assigned at Not on file Legal Sex Male 18:07 EST Gender Identity Not on file Sexual Orientation Not on file documented as of this encounter Discharge Disposition Disposition Code Departure Means Destination Home or Self Skilled Nursing documented in this encounter Plan of Treatment Not on file documented as of this encounter Visit Diagnoses Not on filedocumented in this encounter
[2024-04-05 14:53] LABS: Calculated LDL 134 mg/dL (<100); Cholesterol 222 mg/dL (<200); HDL Cholesterol 57 mg/dL (40-60); Triglyceride 158 mg/dL (<150)
== END 2024-04-05 09:20 | disposition home or self-care (01) ==
LOC: NCHCN 09:19
PROVIDERS: PCP Internal Medicine; Visit Provider Internal Medicine
DX: E78.5 Hyperlipidemia, unspecified (principal)
CPT/HCPCS: 80061

== ENCOUNTER 2024-11-11 15:40 | Outpatient (REF) | payer OTHER, SELFPAY | END 2024-11-11 15:41 | disposition home or self-care (01) | LOC: NCHCN 15:40 | PROVIDERS: PCP Internal Medicine; Visit Provider Internal Medicine | DX: R53.83 Other fatigue (principal) | CPT/HCPCS: 84403 ==

== ENCOUNTER 2025-04-12 08:21 | Outpatient (REF) | payer OTHER, SELFPAY ==
[2025-04-12 14:39] LABS: ALT 46 U/L (10-49); AST 30 U/L (<34); Albumin 4.2 g/dL (3.2-5.0); Alkaline Phosphatase 67 U/L (46-116); Anion Gap 8.4 mmol/L (3-11); BUN 12 mg/dL (9-23); Bilirubin, Total 0.4 mg/dL (0.2-1.2); CO2 29.6 mmol/L (20.0-31.0); Calcium 9.2 mg/dL (8.3-10.6); Chloride 105 mmol/L (98-107); Cholesterol 168 mg/dL (<200); Glucose 80 mg/dL (74-106); HDL Cholesterol 43 mg/dL (>or=40); Potassium 3.6 mmol/L (3.5-5.1); Sodium 143 mmol/L (136-145); Total Protein 6.9 g/dL (5.7-8.2)
== END 2025-04-12 08:22 | disposition home or self-care (01) ==
LOC: NCHCN 08:21
PROVIDERS: PCP Internal Medicine; Visit Provider Internal Medicine
DX: E78.5 Hyperlipidemia, unspecified (principal)
CPT/HCPCS: 80053; 80061